=== PATIENT | female | born 1980 | race African-American/Black ===

== ENCOUNTER 2017-01-04 05:04 | Emergency (ER) | payer OTHER ==
[2017-01-04] MEDS ORDERED: AMOXICILLIN 250 MG CAPSULE PO STA (05:10)
[2017-01-04] MEDS ORDERED: IBUPROFEN 600 MG TABLET PO STA (05:10)
[2017-01-04] MEDS ORDERED: IBUPROFEN 600 MG TABLET PO ONE (05:12)
[2017-01-04] MEDS ORDERED: AMOXICILLIN 250 MG CAPSULE PO ONE (05:12)
== END 2017-01-04 05:17 | disposition home or self-care (01) ==
DX: H66.92 Otitis media, unspecified, left ear (principal)
CPT/HCPCS: 99283; A9270

== ENCOUNTER 2017-05-06 21:51 | Emergency (ER) | payer OTHER ==
[2017-05-06 23:49] LABS: BILIRUBIN,URINE NEGATIVE (NEGATIVE)
[2017-05-06 23:53] LABS: HCG UR QUAL NEGATIVE; UA CHARGE (STRIP ONLY) YES; UR CULTURE IF IND NOT INDICATED
--- NOTE | 2017-05-07 00:19 | ED Physician Documentation ---
PD HPI FEMALE - Stated complaint Stated Complaint: SIDE PX - Chief complaint Chief Complaint: Abd Pain - History obtained from History obtained from: Patient - History of Present Illness Timing - onset: Yesterday Timing - details: Gradual onset, Still present Associated symptoms: Abdominal pain Similar symptoms before: Work up / diagnostics, Treatment, Follow up Recently seen: Not recently seen - Additional information Additional information: patient is a 36 year old female with a history of mittelschmerz and a kidney stone in the past who is presenting to the emergency department for side pain. patient states that it started yesterday. patient states that she did not know if it was a stone again or if it was her mittelschmerz so she came to the emergency department [place]. Review of Systems Constitutional: denies: Fever, Chills Eyes: reports: Reviewed and negative Ears: reports: Reviewed and negative Nose: denies: Congestion, Epistaxis Throat: reports: Reviewed and negative Cardiac: denies: Chest pain / pressure, Palpitations Respiratory: denies: Dyspnea, Cough, Wheezing GI: reports: Abdominal Pain. denies: Nausea, Vomiting, Constipation, Diarrhea : denies: Dysuria, Frequency, Hesitancy, Unable to Void Skin: denies: Rash, Lesions Musculoskeletal: reports: Back pain Neurologic: denies: Generalized weakness, Focal weakness, Numbness Immunocompromised: denies: Immunocompromised PD PAST MEDICAL HISTORY - Past Surgical History Past Surgical History: No - Present Medications Home Medications: Ambulatory Orders Medication Instructions Recorded Confirmed Pnv95/Ferrous Fumarate/FA 1 tab PO DAILY 02/22/14 05/04/14 [ Tablet] Albuterol [Ventolin Hfa] 2 puffs INH Q4H PRN #1 inhaler 05/04/14 Azithromycin 250 mg PO DAILY #4 tablet 05/04/14 predniSONE [Deltasone] 40 mg PO DAILY 3 Days 05/04/14 Amoxicillin 1,000 mg PO TID #30 capsule 01/04/17 - Allergies Allergies/Adverse Reactions: Allergies Allergy/AdvReac Type Severity Reaction Status Date / Time No Known Drug Allergies Allergy Verified 05/04/14 01:38 - Social History Does the pt smoke?: No Smoking Status: Never smoker Does the pt drink ETOH?: No Does the pt have substance abuse?: No - Immunizations Immunizations are current?: Yes - POLST Patient has POLST: No PD ED PE NORMAL - Vitals Vital signs reviewed: Yes - General General: Alert and oriented X 3, Well developed/nourished - HEENT HEENT: Atraumatic, PERRL, Moist mucous membranes - Neck Neck: Supple, no meningeal sign - Cardiac Cardiac: RRR, No murmur - Respiratory Respiratory: No respiratory distress - Abdomen Abdomen: Soft, Non tender, Non distended - Derm Derm: Normal color, Warm and dry, No rash - Extremities Extremities: No deformity - Neuro Neuro: Alert and oriented X 3, No motor deficit, No sensory deficit, Normal speech PD ED PE EXPANDED - General General: Alert, Other (worried) - Back Back: CVA TTP right Results - Vitals Vitals: Vital Signs - 24 hr 05/06/17 05/07/17 22:04 00:35 Temperature 36.8 C Heart Rate 87 71 Respiratory 18 16 Rate Blood Pressure 142/103 H 132/70 H O2 Saturation 100 100 Oxygen O2 Source Room air - Labs Labs: Laboratory Tests 05/06/17 23:35 Urine Color YELLOW Urine Clarity CLEAR Urine pH 6.0 Ur Specific [place] >=1.030 H Urine Protein NEGATIVE Urine Glucose (UA) NEGATIVE Urine Ketones NEGATIVE Urine Occult Blood NEGATIVE Urine Nitrite NEGATIVE Urine Bilirubin NEGATIVE Urine Urobilinogen 0.2 (NORMAL) Ur Leukocyte Esterase NEGATIVE Ur Microscopic Review NOT INDICATED Urine Culture Comments NOT INDICATED Urine HCG, Qual NEGATIVE PD MEDICAL DECISION MAKING - ED course Complexity details: reviewed old records, reviewed results, re-evaluated patient , considered differential, d/w patient ED course: Patient was seen and examined at bedside. patient's urine was collected and was within normal limits. so the chance of stone was less than 20 percent. Patient was made aware of the findings and stated that she did not want imaging at this time. Patient required no further work up and was stable for discharge with outpatient follow up. Departure - Departure Disposition: 01 Home, Self Care Clinical Impression: Owen Condition: Good Instructions: ED Mid Cycle Pain [place] Follow-Up: primary,care provider [Other] - Within 1 week Comments: Your diagnostics today were within normal limits indicating that your pain is unlikely a kidney stone or infection. You should follow up with your pmd if your symptoms persist or return. You may return to the emergency department at any time if necessary for new, worsening or uncontrollable symptoms. Forms: Activity restrictions Discharge Date/Time: 05/07/17 00:36
[2017-05-07] MEDS ORDERED: oxyCODONE/ACET 5/325 Prepack 4 PO STA (00:21)
[2017-05-07] MEDS ORDERED: oxyCODONE/ACET 5/325 Prepack 4 PO ONE (00:31)
[2017-05-07 00:36] VITALS: BP 132/70
== END 2017-05-07 00:36 | disposition home or self-care (01) ==
LOC: ED 21:51
DX: N94.0 Mittelschmerz (principal); Z87.442 Personal history of urinary calculi
CPT/HCPCS: 81001; 81003; 81025; 87086; 99283

== ENCOUNTER 2018-05-13 22:57 | Emergency (ER) | payer OTHER ==
[2018-05-13 23:21] VITALS: BP 128/94
--- NOTE | 2018-05-13 23:52 | ED Physician Documentation ---
History of Present Illness - Stated complaint Stated Complaint: R ABD PX - Chief complaint Chief Complaint: Abd Pain - History obtained from History obtained from: Patient - Additonal information Additional information: 37-year-old female presents the emergency department with complaints of left flank pain which radiates into her abdomen. The patient's symptoms started several days ago and have progressively worsened. No relieving factors. No triggering factors. The patient denies hematuria or dysuria or fever. 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 - Past Surgical History Past Surgical History: No - Present Medications Home Medications: Ambulatory Orders Medication Instructions Recorded Confirmed No Known Home Medications 05/13/18 05/13/18 - Allergies Allergies/Adverse Reactions: Allergies Allergy/AdvReac Type Severity Reaction Status Date / Time No Known Drug Allergies Allergy Verified 05/13/18 23:21 - Social History Does the pt smoke?: No Smoking Status: Never smoker Does the pt drink ETOH?: No Does the pt have substance abuse?: No - Immunizations Immunizations are current?: Yes - POLST Patient has POLST: No PD ED PE NORMAL - General General: Alert and oriented X 3, No acute distress - HEENT HEENT: Atraumatic, PERRL, EOMI, Ears normal - Neck Neck: Supple, no meningeal sign - Cardiac Cardiac: RRR, Strong equal pulses - Respiratory Respiratory: No respiratory distress - Abdomen Abdomen: Soft, Non tender, Non distended - Back Back: No: No CVA TTP (The patient has right flank tenderness) - Derm Derm: Normal color - Extremities Extremities: No deformity, Normal ROM s pain - Neuro Neuro: Alert and oriented X 3, Normal speech - Psych Psych: Normal affect Results - Vitals Vitals: Vital Signs - 24 hr 05/13/18 23:14 Temperature 36.4 C L Heart Rate 91 Respiratory 22 Rate Blood Pressure 128/94 H O2 Saturation 100 Oxygen O2 Source Room air - Labs Labs: Laboratory Tests 05/13/18 05/13/18 05/14/18 23:54 23:54 00:41 WBC 6.9 RBC 4.75 Hgb 13.1 Hct 39.3 MCV 82.8 MCH 27.5 MCHC 33.3 RDW 15.1 H Plt Count 378 MPV 7.2 L Neut # (Auto) 3.9 Lymph # (Auto) 2.2 [place] # (Auto) 0.4 Eos # (Auto) 0.3 Baso # (Auto) 0.1 Absolute Nucleated RBC 0.00 Nucleated RBC % 0.0 Sodium 136 Potassium 3.7 Chloride 106 Carbon Dioxide 22 Anion Gap 8.0 BUN 11 Creatinine 0.9 Estimated GFR (MDRD) 86 L Glucose 97 Calcium 8.8 Total Bilirubin 0.5 AST 18 ALT 18 Alkaline Phosphatase 48 Total Protein 7.3 Albumin 4.2 Globulin 3.1 Albumin/Globulin Ratio 1.4 Lipase 40 Urine Color Urine Clarity Urine pH Ur Specific [place] >=1.030 H Urine Protein Urine Glucose (UA) Urine Ketones Urine Occult Blood Urine Nitrite Urine Bilirubin Urine Urobilinogen Ur Leukocyte Esterase Urine RBC Urine WBC Ur Squamous Epith Cells Urine Bacteria Ur Microscopic Review Urine Culture Comments Urine HCG, Qual NEGATIVE 05/14/18 00:41 WBC RBC Hgb Hct MCV MCH MCHC RDW Plt Count MPV Neut # (Auto) Lymph # (Auto) [place] # (Auto) Eos # (Auto) Baso # (Auto) Absolute Nucleated RBC Nucleated RBC % Sodium Potassium Chloride Carbon Dioxide Anion Gap BUN Creatinine Estimated GFR (MDRD) Glucose Calcium Total Bilirubin AST ALT Alkaline Phosphatase Total Protein Albumin Globulin Albumin/Globulin Ratio Lipase Urine Color YELLOW Urine Clarity CLEAR Urine pH 6.0 Ur Specific [place] >=1.030 H Urine Protein NEGATIVE Urine Glucose (UA) NEGATIVE Urine Ketones NEGATIVE Urine Occult Blood SMALL Urine Nitrite NEGATIVE Urine Bilirubin NEGATIVE Urine Urobilinogen 0.2 (NORMAL) Ur Leukocyte Esterase NEGATIVE Urine RBC 0-5 Urine WBC 0-3 Ur Squamous Epith Cells MOD Squamous H Urine Bacteria Rare Ur Microscopic Review INDICATED Urine Culture Comments NOT INDICATED Urine HCG, Qual PD MEDICAL DECISION MAKING - ED course ED course: On reevaluation the patient resting comfortably and appears to be much improved. The patient's symptoms may be secondary to the gallstone seen on CT scan. Clinically and based on the patient's lab work there is no evidence of acute cholecystitis. Presently, the patient appears appropriate for discharge home and further workup as an outpatient. The patient was discharged during downtime and was given downtime procedure discharge instructions. I advised that she should follow-up with the on-call surgeon and the patient was given his name and number. I discussed warning signs and recommended returning to the emergency department immediately for worsening or any concerns. - Sepsis Event Vital Signs: Vital Signs - 24 hr 05/13/18 23:14 Temperature 36.4 C L Heart Rate 91 Respiratory 22 Rate Blood Pressure 128/94 H O2 Saturation 100 Oxygen O2 Source Room air Departure - Departure Disposition: 01 Home, Self Care Clinical Impression: Flank pain Gallstone Qualifiers: Cholecystitis presence: without cholecystitis Biliary obstruction: without biliary obstruction Qualified Code(s): K80.20 - Calculus of gallbladder without cholecystitis without obstruction Condition: Good Discharge Date/Time: 05/14/18 03:33
[2018-05-14 00:01] LABS: BASOPHILS # (AUTO) 0.1 10^3/uL (0.0-0.1); BASOPHILS % (AUTO) 1.1 %; EOSINOPHILS # (AUTO) 0.3 10^3/uL (0.0-0.7); EOSINOPHILS % (AUTO) 4.2 %; HGB - HEMOGLOBIN 13.1 g/dL (12.0-16.0); LYMPHOCYTES # (AUTO) 2.2 10^3/uL (1.5-3.5); LYMPHOCYTES % (AUTO) 32.4 %; MEAN CORPUSCULAR HEMOGLOBIN 27.5 pg (27.0-31.0); MEAN CORPUSCULAR HGB CONC 33.3 g/dL (32.0-36.0); MEAN CORPUSCULAR VOLUME 82.8 fL (81.0-99.0); MEAN PLATELET VOLUME 7.2 fL (7.9-10.8); MONOCYTES # (AUTO) 0.4 10^3/uL (0.0-1.0); MONOCYTES % (AUTO) 5.8 %; NEUTROPHILS # (AUTO) 3.9 10^3/uL (1.5-6.6); NEUTROPHILS % (AUTO) 56.5 %; PLT - PLATELET COUNT 378 10^3/uL (130-450); RED BLOOD COUNT 4.75 10^6/uL (4.20-5.40); RED CELL DISTRIBUTION WIDTH 15.1 % (12.0-15.0); WHITE BLOOD COUNT 6.9 x10^3/uL (4.8-10.8)
[2018-05-14 00:13] LABS: ALBUMIN 4.2 g/dL (3.2-5.5); ALBUMIN/GLOBULIN RATIO 1.4 (1.0-2.2); BILIRUBIN,TOTAL 0.5 mg/dL (0.2-1.0); CALCIUM 8.8 mg/dL (8.5-10.3); CREATININE 0.9 mg/dL (0.4-1.0); TOTAL PROTEIN 7.3 g/dL (6.7-8.2)
[2018-05-14 00:53] LABS: CLARITY,URINE CLEAR (CLEAR); LEUKOCYTE ESTERASE, URINE NEGATIVE (NEGATIVE); NITRITE,URINE NEGATIVE (NEGATIVE); OCCULT BLOOD,URINE SMALL (NEGATIVE); PROTEIN,URINE NEGATIVE (NEGATIVE); UROBILINOGEN,URINE 0.2 (NORMAL) E.U./dL (NORMAL)
[2018-05-14 00:54] LABS: BILIRUBIN,URINE NEGATIVE (NEGATIVE); GLUCOSE, URINE (UA) NEGATIVE (NEGATIVE); HCG UR QUAL NEGATIVE; KETONES,URINE (UA) NEGATIVE (NEGATIVE)
[2018-05-14 00:56] LABS: BACTERIA,URINE Rare /HPF (None Seen); RBC,URINE 0-5 /HPF (0-5); SQUAMOUS EPITHELIAL CELL,UR MOD Squamous (<= Few)
[2018-05-14] MEDS ORDERED: KETOROLAC 15 MG/ML VIAL ONE (01:39)
[2018-05-14] MEDS ORDERED: fentaNYL 100 MCG/2 ML VIAL ONE (01:40)
[2018-05-14] MEDS ORDERED: ONDANSETRON 4 MG/2 ML VIAL ONE (01:40)
--- NOTE | 2018-05-14 03:15 | CT Report ---
Reason: flank pain Procedure Date: 05/14/2018 Accession Number: [id number] / [id number] Procedure: CT - Abdomen/Pelvis W/O CPT Code: FULL RESULT: EXAM: CT ABDOMEN AND PELVIS (CT KUB) EXAM DATE: 05/14/2018 01:06 AM. CLINICAL HISTORY: Flank pain. COMPARISONS: None. TECHNIQUE: Routine axial helical CT imaging was performed through the abdomen and pelvis without IV contrast. Reconstructions: Coronal and sagittal. In accordance with CT protocol optimization, one or more of the following dose reduction techniques were utilized for this exam: automated exposure control, adjustment of mA and/or KV based on patient size, or use of iterative reconstructive technique. FINDINGS: Lung Bases: Unremarkable. Right Kidney/Ureter: No stones, hydronephrosis, or hydroureter. No perinephric fat stranding. Left Kidney/Ureter: No stones, hydronephrosis, or hydroureter. No perinephric fat stranding. Other Solid Organs: Noncontrast images of the solid organs are grossly unremarkable. Gallbladder/Bile Ducts: Distended gallbladder. There are some small calcified stones layering in the gallbladder. Minimal gallbladder inflammation could be present. Peritoneal Cavity: No bowel obstruction seen. There are some colonic diverticula. No definite diverticulitis is identified. No free air or free fluid. No lymphadenopathy. There is a small umbilical hernia containing fat. Appendix appears normal. Pelvic Organs: No bladder stones or wall thickening. Noncontrast images of the visualized pelvic organs are unremarkable. Vasculature: Unremarkable. Other: None. IMPRESSION: 1. No urolithiasis seen. 2. Distended gallbladder with some small layering stones. Early cholecystitis not excluded. 3. Colonic diverticula without definite evidence of diverticulitis. 4. Appendix appears normal. RADIA
== END 2018-05-14 03:33 | disposition home or self-care (01) ==
LOC: ED 22:57
DX: K80.20 Calculus of gallbladder without cholecystitis without obstruction (principal)
CPT/HCPCS: 36415; 74176; 80053; 81001; 81003; 81025; 83690; 85025; 87086; 99282; 99283

== ENCOUNTER 2020-06-28 16:20 | Emergency (ER) | payer OTHER ==
--- NOTE | 2020-06-28 16:47 | ED Physician Documentation ---
PD HPI ABD PAIN - Stated complaint Stated Complaint: R SIDE PX - Chief complaint Chief Complaint: Abd Pain - History obtained from History obtained from: Patient - History of Present Illness Timing - onset: Chronic (worsening over past couple days) Timing - duration: Minutes (15 minutes after eating) Timing - details: Waxing and waning Severity Comments: moderate severity Quality: Cramping Location: RUQ Radiation: Right flank Worsened by: Eating Associated symptoms: Nausea Similar symptoms before: Other (similar symptoms in past , over past several years with history of one small gallstone.) Recently seen: Not recently seen Review of Systems Ten Systems: 10 systems reviewed and negative Constitutional: denies: Fever, Chills Cardiac: denies: Chest pain / pressure GI: reports: Abdominal Pain, Nausea : denies: Dysuria, Frequency, Hesitancy, Vaginal bleeding Musculoskeletal: reports: Back pain PD PAST MEDICAL HISTORY - 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 - Past Surgical History Past Surgical History: No - Present Medications Home Medications: Ambulatory Orders Medication Instructions Recorded Confirmed Amox/Clav 875/125 [Augmentin] 1 each PO Q12H #20 tablet 06/28/20 Oxycodone HCl/Acetaminophen 1 - 2 each PO Q6H PRN #14 tablet 06/28/20 [Percocet 5-325 mg Tablet] - Allergies Allergies/Adverse Reactions: Allergies Allergy/AdvReac Type Severity Reaction Status Date / Time No Known Drug Allergies Allergy Verified 06/28/20 16:27 - Social History Does the pt smoke?: No Smoking Status: Never smoker Does the pt drink ETOH?: No Does the pt have substance abuse?: No - Immunizations Immunizations are current?: Yes - POLST Patient has POLST: No PD ED PE NORMAL - Vitals Vital signs reviewed: Yes - General General: Alert and oriented X 3, No acute distress - HEENT HEENT: Atraumatic - Neck Neck: Supple, no meningeal sign - Cardiac Cardiac: RRR - Respiratory Respiratory: No respiratory distress - Abdomen Abdomen: Other (+oneal sign. ttp in RUQ. otherwise ntnd) - Back Back: No CVA TTP - Derm Derm: Normal color - Extremities Extremities: No edema - Neuro Neuro: Alert and oriented X 3 - Psych Psych: Normal mood, Normal affect Results - Vitals Vitals: Vital Signs - 24 hr 06/28/20 06/28/20 16:22 18:35 Temperature 36.6 C Heart Rate 82 80 Respiratory 20 18 Rate Blood Pressure 146/107 H 137/100 H O2 Saturation 99 100 Oxygen O2 Source Room air - Labs Labs: Laboratory Tests 06/28/20 06/28/20 06/28/20 17:04 17:04 18:10 WBC 9.4 RBC 4.82 Hgb 13.9 Hct 41.8 MCV 86.7 MCH 28.8 MCHC 33.3 RDW 13.0 Plt Count 344 MPV 8.8 Neut # (Auto) 6.9 H Lymph # (Auto) 1.8 [place] # (Auto) 0.5 Eos # (Auto) 0.2 Baso # (Auto) 0.0 Absolute Nucleated RBC 0.00 Nucleated RBC % 0.0 Sodium 138 Potassium 3.7 Chloride 105 Carbon Dioxide 24 Anion Gap 9.0 BUN 9 Creatinine 0.8 Estimated GFR (MDRD) 98 Glucose 118 H Calcium 9.1 Total Bilirubin 0.5 AST 14 ALT 16 Alkaline Phosphatase 52 Total Protein 7.0 Albumin 3.9 Globulin 3.1 Albumin/Globulin Ratio 1.3 Lipase 34 Urine Color YELLOW Urine Clarity CLEAR Urine pH 6.5 Ur Specific [place] 1.015 Urine Protein NEGATIVE Urine Glucose (UA) NEGATIVE Urine Ketones NEGATIVE Urine Occult Blood TRACE-LYSE Urine Nitrite NEGATIVE Urine Bilirubin NEGATIVE Urine Urobilinogen 0.2 (NORMAL) Ur Leukocyte Esterase NEGATIVE Ur Microscopic Review NOT INDICATED Urine Culture Comments NOT INDICATED Urine HCG, Qual NEGATIVE - Rads (name of study) RUQ sono Radiology: EMP read contemporaneously (Thick-walled gallbladder with multiple stones, no pericholecystic fluid.) PD MEDICAL DECISION MAKING - ED course ED course: 39-year-old woman with pain that sounds very much like it is from her gallbladder and is found to have probably mild cholecystitis on ultrasound with normal labs. Case discussed by phone with Dr. Sharpe, the on-call surgeon who recommends close follow-up in the office tomorrow and oral antibiotics. Departure - Departure Disposition: 01 Home, Self Care Clinical Impression: Cholecystitis Condition: Good Record reviewed to determine appropriate education?: Yes Instructions: ED Gallbladder Infec Conf Follow-Up: Sonja Sharpe MD [Provider Admit Priv/Credential] - Prescriptions: Amox/Clav 875/125 [Augmentin] 1 each PO Q12H #20 tablet Oxycodone HCl/Acetaminophen [Percocet 5-325 mg Tablet] 1 - 2 each PO Q6H PRN #14 tablet PRN Reason: pain Comments: The on-call surgeon, Dr. Sharpe was contacted by phone today and would like to see you in the office tomorrow. You also need to [place] to get in with a surgeon as you will likely need your gallbladder out in short order. Return if worsening or if the pain is uncontrolled. We did do a preoperative coronavirus test today. Results should be done within 24 to 48 hours.
[2020-06-28 17:10] LABS: BASOPHILS % (AUTO) 0.4 %; EOSINOPHILS # (AUTO) 0.2 10^3/uL (0.0-0.7); EOSINOPHILS % (AUTO) 1.8 %; HGB - HEMOGLOBIN 13.9 g/dL (12.0-16.0); LYMPHOCYTES # (AUTO) 1.8 10^3/uL (1.5-3.5); LYMPHOCYTES % (AUTO) 18.8 %; MEAN CORPUSCULAR HEMOGLOBIN 28.8 pg (27.0-31.0); MEAN CORPUSCULAR HGB CONC 33.3 g/dL (32.0-36.0); MEAN CORPUSCULAR VOLUME 86.7 fL (81.0-99.0); MEAN PLATELET VOLUME 8.8 fL (7.9-10.8); MONOCYTES # (AUTO) 0.5 10^3/uL (0.0-1.0); MONOCYTES % (AUTO) 5.4 %; NEUTROPHILS # (AUTO) 6.9 10^3/uL (1.5-6.6); NEUTROPHILS % (AUTO) 73.3 %; PLT - PLATELET COUNT 344 10^3/uL (130-450); RED BLOOD COUNT 4.82 10^6/uL (4.20-5.40); WHITE BLOOD COUNT 9.4 x10^3/uL (4.8-10.8)
[2020-06-28 17:23] LABS: ALBUMIN 3.9 g/dL (3.2-5.5); ALBUMIN/GLOBULIN RATIO 1.3 (1.0-2.2); BILIRUBIN,TOTAL 0.5 mg/dL (0.2-1.0); CALCIUM 9.1 mg/dL (8.5-10.3); CREATININE 0.8 mg/dL (0.4-1.0)
[2020-06-28] MEDS ORDERED: oxyCODONE 5 MG TABLET PO STA (18:07)
[2020-06-28] MEDS ORDERED: AMOX/CLAV 875 MG/125 MG TABLET PO STA (18:07)
--- NOTE | 2020-06-28 18:29 | Ultrasound Report ---
PROCEDURE: Abdomen Limited INDICATIONS: RUQ pain TECHNIQUE: Real-time focused scanning was performed of the abdomen, with image documentation. COMPARISON: Correlation is made with prior abdomen and pelvis CT, 05/14/2018. FINDINGS: The liver demonstrates normal size and echogenicity. No liver lesions are detected. Shadowing gallstones can be seen, which measure up to 1.3 cm and are not mobile. The lateral wall is thickened at 5 mm. No specific pericholecystic fluid is seen. The sonographic Carter's sign is positi ve. No biliary ductal dilatation is seen. The common bile duct measures 3 mm. The visualized pancreas is unremarkable. The visualized right kidney is likewise within normal limits . IMPRESSION: High suspicion for acute cholecystitis, with nonmobile gallstones, a thickened gallbladder wall, and a positive sonographic Carter's sign. Note: Concordant preliminary findings given by the turntable worker upon the completion of the examination to Dr. Ramos at 6:00 PM on 06/28/2020. Reviewed by: Paco Catherine MD on 06/28/2020 5:28 PM COLLEEN Approved by: Paco Catherine MD on 06/28/2020 5:28 PM COLLEEN Station ID: [id number]
[2020-06-28 18:33] LABS: BILIRUBIN,URINE NEGATIVE (NEGATIVE); GLUCOSE, URINE (UA) NEGATIVE (NEGATIVE); KETONES,URINE (UA) NEGATIVE (NEGATIVE); LEUKOCYTE ESTERASE, URINE NEGATIVE (NEGATIVE); NITRITE,URINE NEGATIVE (NEGATIVE); OCCULT BLOOD,URINE TRACE-LYSE (NEGATIVE); PH,URINE 6.5 PH (5.0-7.5); PROTEIN,URINE NEGATIVE (NEGATIVE); UROBILINOGEN,URINE 0.2 (NORMAL) E.U./dL (NORMAL)
[2020-06-28 18:36] VITALS: BP 137/100
[2020-06-28 18:37] LABS: CLARITY,URINE CLEAR (CLEAR); HCG UR QUAL NEGATIVE
== END 2020-06-28 18:47 | disposition home or self-care (01) ==
LOC: ED 16:20
DX: K81.9 Cholecystitis, unspecified (principal)
CPT/HCPCS: 36415; 76705; 80053; 81003; 81025; 83690; 85025; 87635; 99284; 99285; A9270; 81001; 87086

== ENCOUNTER 2020-07-02 11:15 | Day surgery (SDC) | payer OTHER ==
[~2020-07-02 11:15] MED LIST: BUPIVACAINE 0.25% PF 30 ML VIAL SUBQ ONE; LACTATED RINGERS 1,000 ML IV ONE
[2020-07-02 11:38] LABS: HCG UR QUAL NEGATIVE
[2020-07-02] MEDS ORDERED: LACTATED RINGERS 1,000 ML IV ONE ×3 (11:47→14:44)
[2020-07-02] MEDS ORDERED: CEFAZOLIN SODIUM IN 0.9 % NACL 2 GM/100 ML BAG IV ONE (11:55)
--- NOTE | 2020-07-02 11:56 | ANESTHESIA ---
Pre-Anesthesia VS, & Labs - Diagnosis cholecystsitis - Procedure laparoscopic misty Vital Signs: Temp Pulse Resp BP Pulse Ox 36.6 C 78 18 121/82 H 99 07/02/20 11:34 07/02/20 11:34 07/02/20 11:34 07/02/20 11:34 07/02/20 11:34 Height: 5 ft 3 in Weight (kg): 92.99 kg Body Mass Index: 36.3 BMI Classification: Obese - NPO >8 hours - Is Patient ?: No Home Medications and Allergies Home Medications: Ambulatory Orders Acetaminophen [Tylenol] 650 mg PO Q6H PRN 07/02/20 Acetaminophen [Tylenol] 650 mg PO Q6H PRN 07/02/20 Allergies/Adverse Reactions: Allergies Allergy/AdvReac Type Severity Reaction Status Date / Time No Known Drug Allergies Allergy Verified 07/02/20 11:38 Anes History & Medical History - Anesthetic History Anesthesia Complications: reports: No previous complications - Medical History Cardiovascular: reports: None Pulmonary: reports: None Gastrointestinal: reports: Cholelithiasis Urinary: reports: None Smoking Status: Current every day smoker History of Cancer?: No Exam General: Alert, Oriented x3 Dental: WNL Mouth Opening: Greater than 4 Fingerbreadths Mallampati classification: III Thyromental Distance: greater than 6 cm Respiratory: Lungs clear Cardiovascular: Regular rate, Normal S1, Normal S2 Plan Anesthesia Type: General Consent for Procedure(s) Verified and Reviewed: Yes Code Status: Attempt Resuscitation ASA classification: 2-Mild systemic disease Is this case an emergency?: No
[2020-07-02] MEDS ORDERED: BUPIVACAINE 0.25% PF 30 ML VIAL ONE ×2 (12:11→12:55)
[2020-07-02] MEDS ORDERED: ONDANSETRON 4 MG/2 ML VIAL IVP ONE (12:15)
[2020-07-02] MEDS ORDERED: GLYCOPYRROLATE 1 MG/5 ML VIAL IVP ONE (12:15)
[2020-07-02] MEDS ORDERED: NEOSTIGMINE 1 MG/1 ML 10 ML MDV IVP ONE (12:15)
[2020-07-02] MEDS ORDERED: ROCURONIUM 50 MG/5 ML VIAL IVP ONE (12:15)
[2020-07-02] MEDS ORDERED: PROPOFOL 200 MG/20 ML VIAL IVP ONE (12:15)
[2020-07-02] MEDS ORDERED: fentaNYL 250 MCG/5 ML VIAL IVP ONE (12:15)
[2020-07-02] MEDS ORDERED: KETOROLAC 30 MG/ML VIAL IVP ONE (12:15)
[2020-07-02] MEDS ORDERED: MIDAZOLAM 2 MG/2 ML VIAL IVP ONE (12:15)
[2020-07-02] MEDS ORDERED: LIDOCAINE-MPF 2% 5 ML VIAL IM ONE (12:15)
[2020-07-02] MEDS ORDERED: DEXAMETHASONE 4 MG/ML VIAL IVP ONE (12:15)
[2020-07-02] MEDS ORDERED: ACETAMINOPHEN 1,000 MG/100 ML 100 ML IV PRN (13:02)
[2020-07-02] MEDS ORDERED: HYDROmorphone 0.5 MG/0.5 ML SYRINGE IVP PRN (13:02)
[2020-07-02] MEDS ORDERED: ATROPINE ABBOJECT 1 MG/10 ML SYRINGE IVP PRN (13:02)
[2020-07-02] MEDS ORDERED: NALOXONE 0.4 MG/ML VIAL IVP PRN (13:02)
[2020-07-02] MEDS ORDERED: fentaNYL 100 MCG/2 ML VIAL IVP PRN (13:02)
[2020-07-02] MEDS ORDERED: ONDANSETRON 4 MG/2 ML VIAL IVP PRN (13:02)
[2020-07-02] MEDS ORDERED: MORPHINE 2 MG/ML CARPUJECT IVP PRN (13:02)
[2020-07-02] MEDS ORDERED: BUPIVACAINE 0.25% PF 30 ML VIAL SUBQ ONE (13:15)
[2020-07-02] MEDS ORDERED: SUGAMMADEX 200 MG/2 ML VIAL IVP ONE (13:38)
--- NOTE | 2020-07-02 13:38 | OPERATIVE REPORT ---
Operative Report - General Procedure Date: 07/02/20 Planned Procedure: lap misty Pre-Op Diagnosis: chronic cholecystitis Procedure Performed: lap misty Post Op Diagnosis: chronic cholecystitis - Procedure Note Primary Surgeon: claudia wilde Anesthesia Technique: General ET tube, Local Pathology: gb Estimated Blood Loss (mL): 10 Drain/Tube Type: Other (none) Complications: none
--- NOTE | 2020-07-02 13:53 | ANESTHESIA POST OP EVALUATION ---
Anesthesia Post Eval - Post Anesthesia Eval Vitals: Last Vital Signs Temp 36.7 C 07/02/20 13:34 Pulse 75 07/02/20 13:40 Resp 15 07/02/20 13:40 BP 138/88 H 07/02/20 13:40 Pulse Ox 100 07/02/20 13:40 CV Function Including HR & BP: positive: Stable Pain Control: positive: Satisfactory Nausea & Vomiting: positive: Negative Mental Status: positive: Baseline Respiratory Status: Airway Patent Hydration Status: Satisfactory Anesthesia Complications: positive: None
[2020-07-02] MEDS ORDERED: LACTATED RINGERS 1,000 ML IV SCH (14:00)
[2020-07-02] MEDS ORDERED: ACETAMINOPHEN 1,000 MG/100 ML 100 ML IV ONE (14:11)
[2020-07-02] MEDS: HYDROcod/ACETAM 5/325 MG TABLET PO PRN ×2 (14:51→21:39)
[2020-07-02] MEDS ORDERED: HYDROcod/ACETAM 5/325 MG TABLET ONE (14:55)
[2020-07-02] MEDS ORDERED: ONDANSETRON 4 MG/2 ML VIAL ONE (15:59)
--- NOTE | 2020-07-02 16:17 | OPERATIVE REPORT ---
DATE OF SERVICE: 07/02/2020 Physician: Lexa Olivia MD PREOPERATIVE DIAGNOSIS: Acute on chronic cholecystitis. POSTOPERATIVE DIAGNOSIS: Chronic cholecystitis. PROCEDURE PERFORMED: Laparoscopic cholecystectomy. SURGEON: Lexa Olivia MD DIALS INSPECTOR: None. ANESTHESIA 1. General endotracheal anesthesia. 2. Local anesthesia with Marcaine. COMPLICATIONS: None. ESTIMATED BLOOD LOSS: None. SPECIMEN: Gallbladder. DRAINS: None. FINDINGS: Chronic cholecystitis. She had significant scarring of the cystic duct to the cystic praneeth ry as well as stones in the infundibulum. She had a healthy-appearing liver. The common hepatic ivone t was easily evident without dissection and was normal. INDICATIONS FOR PROCEDURE: The patient is a 39-year-old who has had significant biliary colic on and off for years. It has progressed markedly recently. She has not had signs or symptoms of choledoch olithiasis. She presents for laparoscopic cholecystectomy. Risks discussed, and alternatives discus sed. All questions answered and consent obtained. DESCRIPTION OF PROCEDURE: The patient was properly identified and brought to the operating room and placed in supine position. General endotracheal anesthesia was induced. Sequential compression eduardo jacqueline were placed. She was prepped and draped in a sterile fashion, given preoperative antibiotics. L ocal anesthetic was given to incision areas. She has had 4 children, she has a small diastasis and m ild weakness at the umbilicus. An incision was made approximately 2 cm cephalad and 4 cm right later al of the umbilicus. Dissection proceeded down to the anterior rectus sheath. This was incised part ially, lifted upwards and abdomen entered with the Veress needle. CO2 was insufflated to a pressure of 15. An 11 mm trocar with a 30-degree scope was placed under vision. There was no evidence of inj ury from Veress needle or trocar placement. Under direct vision, two 5 mm trocars were placed in the right upper quadrant and a 10 mm trocar was placed in the epigastrium. Body of the gallbladder was retracted anterior. The infundibulum of the gallbladder was retracted right lateral and caudad. Per itoneal type tissue was carefully mobilized from the bottom of the gallbladder. The node of [place] was removed, exposing the cystic artery. Her gallbladder was slightly funnel shaped. The cystic duct a nd cystic artery were scarred densely to one another. The hepatic duct was easily evident without di ssection. The cystic duct and cystic artery were carefully from one another. The cystic d uct was then clipped times three where it was narrow and clipped an additional one time towards the g allbladder and sharply divided. Cystic artery was clipped and divided. The gallbladder was mobilize d off from the bed of the liver without spillage of bile or stone material. The gallbladder was plac ed in an EndoCatch bag and brought out through the epigastrium. Hemostasis was assured. Clips were secure. There were no apparent complications. Trocars were removed under direct vision and CO2 evac uated. Fascia and epigastrium was closed with an interrupted 0 Vicryl. Fascia at the periumbilical area was closed with a [id number] 0 Vicryl. Subcutaneous tissue was irrigated and skin closed w ith buried interrupted 4-0 Monocryl. Steri-Strips and dressings were applied. She tolerated the pro cedure very well. TD: 07/02/2020 13:59
[2020-07-02] MEDS ORDERED: ONDANSETRON ODT 4 MG TABLET TL PRN (18:35)
[2020-07-02] MEDS: KETOROLAC 15 MG/ML VIAL IVP PRN (20:08)
[2020-07-03] MEDS: KETOROLAC 15 MG/ML VIAL IVP PRN ×2 (01:59→10:02)
[2020-07-03] MEDS: HYDROcod/ACETAM 5/325 MG TABLET PO PRN (06:30)
[2020-07-03 09:00] VITALS: BP 120/77
--- NOTE | 2020-07-03 10:34 | DISCHARGE SUMMARY ---
"Discharge Summary Admit Date: 07/02/20 Discharge Date: 07/03/20 Discharging Provider: claudia wilde Code Status: Attempt Resuscitation Condition at Discharge: Good Discharge Disposition: 01 Home, Self Care - DIAGNOSES Admission Diagnoses: cholecystitis Discharge Diagnoses with Status of Each Condition: chronic cholecystitis. Lap misty. Home in good condition - HPI History of Present Illness: Progressive abdominal pain requiring urgent cholecystectomy 07/02/2020 - CONSULTS | PROCEDURES Procedures: lap misty - ALLERGIES Allergies/Adverse Reactions: Allergies Allergy/AdvReac Type Severity Reaction Status Date / Time No Known Drug Allergies Allergy Verified 07/02/20 11:38 - MEDICATIONS Home Medications: Ambulatory Orders Medication Instructions Recorded Confirmed Amox/Clav 875/125 [Augmentin] 1 each PO Q12H #20 tablet 06/28/20 07/02/20 Oxycodone HCl/Acetaminophen 1 - 2 each PO Q6H PRN #14 tablet 06/28/20 07/02/20 [Percocet 5-325 mg Tablet] Acetaminophen [Tylenol] 650 mg PO Q6H PRN 07/02/20 07/02/20 Hydrocodone/Acetaminophen 1 each PO Q4HR PRN #30 tablet 07/02/20 [Hydrocodone-Acetamin 5-325 mg] Ondansetron Odt [Zofran Odt] 4 mg PO Q6H PRN #15 tablet 07/02/20 - QUALITY (Female Hip Fx Only) Was patient sent home on osteoporosis medication?: No - FOLLOW UP Follow Up: surgery. appointment has been made"
--- NOTE | 2020-07-03 10:36 | Discharge Plan ---
Discharge Plan Problem Reviewed?: Yes Disposition: Home, Self Care Prescriptions: Hydrocodone/Acetaminophen [Hydrocodone-Acetamin 5-325 mg] 1 each PO Q4HR PRN #30 tablet PRN Reason: Pain Ondansetron Odt [Zofran Odt] 4 mg PO Q6H PRN #15 tablet PRN Reason: Nausea / Vomiting Diet: Regular Activity Restrictions: No Restrictions Shower Restrictions: No Driving Restrictions: No No Smoking: If you smoke, Please STOP! Call for help. Follow-up with: Lexa Olivia MD [Provider Admit Priv/Credential] -
== END 2020-07-03 10:30 | disposition home or self-care (01) ==
LOC: SDS 11:15 → MS2 17:20 → SDS 07-03 10:30
PROVIDERS: ATTEND Surgery
PROC: 0FT44ZZ Resection of Gallbladder, Percutaneous Endoscopic Approach (ICD-10-PCS; principal; 2020-07-02 12:00)
DX: K80.10 Calculus of gallbladder with chronic cholecystitis without obstruction (principal); I10 Essential (primary) hypertension; F17.210 Nicotine dependence, cigarettes, uncomplicated; E66.9 Obesity, unspecified; Z68.36 Body mass index [BMI] 36.0-36.9, adult
CPT/HCPCS: 47562; 81025; A9270; J0131; J0690; J3010; J7120; Q0162

== ENCOUNTER 2020-09-10 03:08 | Emergency (ER) | payer OTHER ==
--- NOTE | 2020-09-10 03:29 | ED Physician Documentation ---
PD HPI HEENT - Stated complaint Stated Complaint: EAR PX/THROBING - Chief complaint Chief Complaint: Heent - History obtained from History obtained from: Patient - History of Present Illness Timing - onset: Last night Timing - duration: Hours (several) Timing - details: Gradual onset Pain level max: 6 Pain level now: 6 Location: Right ear Improves: Nothing Worsens: Other (Yanking on the ear) Associated symptoms: Other (Postnasal drip) Review of Systems Ears: reports: Ear pain PD PAST MEDICAL HISTORY - Past Medical History Past Medical History: Yes Cardiovascular: None Respiratory: None GI: Cholelithiasis [employer]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: Other : None - Past Surgical History Past Surgical History: Yes General: Cholecystectomy - Present Medications Home Medications: Ambulatory Orders Medication Instructions Recorded Confirmed Ciproflox/Dexameth Otic Drops 4 drops OT BID 14 Days #1 bottle 09/10/20 [Ciprodex] - Allergies Allergies/Adverse Reactions: Allergies Allergy/AdvReac Type Severity Reaction Status Date / Time No Known Drug Allergies Allergy Verified 09/10/20 03:18 - Social History Does the pt smoke?: Yes Smoking Status: Current every day smoker Does the pt drink ETOH?: No Does the pt have substance abuse?: No - Immunizations Immunizations are current?: Yes - POLST Patient has POLST: No PD ED PE NORMAL - Vitals Vital signs reviewed: Yes - General General: Alert and oriented X 3 - HEENT HEENT: Atraumatic, PERRL, EOMI, Moist mucous membranes, Pharynx benign, Other (B ilateral external auditory canal with inflammatory changes. Right external auditory canal with erythema And moderate swelling) - Neck Neck: Supple, no meningeal sign Results - Vitals Vitals: Vital Signs - 24 hr 09/10/20 03:14 Temperature 36.5 C Heart Rate 72 Respiratory 16 Rate Blood Pressure 135/92 H O2 Saturation 100 Oxygen O2 Source Room air PD MEDICAL DECISION MAKING - ED course ED course: 39-year-old woman seen for mild otitis externa. Eardrops prescribed. Return pr ecautions given. Patient will follow up with her primary doctor Departure - Departure Disposition: 01 Home, Self Care Clinical Impression: External otitis of right ear Condition: Good Instructions: ED Otitis Externa Ch Prescriptions: Ciproflox/Dexameth Otic Drops [Ciprodex] 4 drops OT BID 14 Days #1 bottle Comments: Return to the ED for any new or worsening symptoms. Follow-up with your primary doctor
[2020-09-10 03:36] VITALS: BP 135/91
--- OUTSIDE RECORDS SUMMARY | 2020-09-15 01:25 | EXTERNAL MEDICAL SUMMARY RPT | Continuity of Care Document ---
:1980 Demographics Phone Unavailable Preferred Language Hebrew Marital Status Unknown Mandaen Affiliation Unknown Race Unknown Ethnic Group Unknown Author Organization [facility] Address [address] [place] [address] Phone Care Team Providers Name Role Phone MD Unavailable Unavailable Rafael Unavailable Unavailable OR Unavailable Unavailable Registrar Unavailable Unavailable Problems date description facility 2020-06-28 16:20 CHOLECYSTITIS, UNSPECIFIED [facility] 2020-07-01 00:00:00 Hypertensive disorder [facility] 2020-07-01 00:00:00 Current every day smoker [facility] 2020-07-01 00:00:00 Calculus of gallbladder without [facility] mention of cholecystitis, without mention of obstruction 2020-07-01 00:00:00 Calculus of gallbladder without [facility] cholecystitis without obstruction 2020-07-01 00:00:00 Alcohol intake [facility] 2020-07-01 00[facility]00:[facility]:00 Biliary calculus [facility] 2020-07-01 00:00:00 Unspecified essential [facility] hypertension 2020-07-01 00:00:00 Essential (primary[facility] hypertension Allergies date description facility NO KNOWN ALLERGIES [facility] CITRUS [facility] EX[facility]AT[facility] JUNIPER TAR [facility] LATEX [facility] No Known Drug Allergies [facility] Results Social History date description facility 2020-07-01 00:00:00 Current every day smoker [facility] Social History date description facility 2020-07-01 00:00:00 Current every day smoker [facility] date description facility [phone]
== END 2020-09-10 03:35 | disposition home or self-care (01) ==
LOC: ED 03:08
DX: H60.91 Unspecified otitis externa, right ear (principal); F17.200 Nicotine dependence, unspecified, uncomplicated
CPT/HCPCS: 99282; 99283

== ENCOUNTER 2022-01-26 08:59 | Outpatient (CLI) | payer OTHER ==
--- NOTE | 2022-01-26 10:13 | SLEEP CARE CONSULTATION ---
Information from patient questionnaire entered by Zainab Auguste MA. I have reviewed and concur with the information entered by Zaniab Auguste MA. This document represents the service I personally performed and the decisions made by , Kristal Travis ARNP. History of Present Illness Service Date and Time: 01/26/2022 0859 Reason for Visit: New patient (ONSET 09/03/2016, NO PRIORS, ) Chief Complaint: reports: Unrefreshed sleep, Snoring, Observed pauses in shruti thing Date of Onset: 6 YEARS Usual bedtime: MORNINGS; 7128-3480 Time it takes to fall asleep: FAST; within minutes Snores at night: Yes Observed to quit breathing while asleep: Yes Sleeps alone due to snoring: Yes Number of times waking at night: 1 Reasons for waking at night: reports: Snoring, Bathroom Toss, Turn, or Twitch while sleeping: No Recalls having dreams: No Usually gets out of bed at: 2173-8090, goes back to sleep after 30 mins to 1600 Feels refreshed in the morning: No Morning headache: No Sleepy or fatigued during the day: Yes Ever fallen asleep while driving: Yes (drowsy driving, no accidents) Takes day naps: Yes (unintentional during work time; few minutes) Dreams during day naps: No Prior sleep studies: No Additional HPI information: I had the pleasure of seeing JIMMIE ATFELIX WOODSON today regarding the possibility of her having a sleep disorder. Her current complaints are snoring, unrefreshed sleep and observed pauses in breathing. She states she snores loudly and recently her elbowed her in her sleep and woke her up. She moved to the couch that night. Her children who sleep in a lower level of the house can hear her snore. She states she did not really snore until after her second child was conceived and after she was delivered. She would wake up gasping for air and snoring. She states her mother has told her she hears her "choking" when she is sleeping. 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 She will be down to sleep between 930 and 10 AM but then wake up a couple hours later. She will be up for about 30 minutes or so and go back to bed about 1 PM. She will then try to sleep till about 4 PM. She normally does not feel rested when she gets up. Patient is trying to lose weight and has lost about 18 pounds in the last 3 months. She is doing an intermittent fasting, cutting out soda and drinking a cleansing liquid containing lemon juice and cayenne. 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 Patient is and lives in [place]. Have you smoked in the past 12 months: Yes Cigarettes per day (20/pack): 10 Years of smokin Smoking Pack Years: 10.0 Alcohol use: Yes Alcohol amount and frequency: 1 X 6 MONTHS Caffeine use: Yes Caffeine amount and frequency: 3 X WEEKLY Family History Family history of sleep disordered breathing: Yes Family Hx Sleep Apnea: Father: Sleep apnea - Treated Allergies and Home Medications Known drug allergies: No Drug allergies reviewed: Yes (NKDA) Home medication list reviewed: Yes (no daily medications) Allergy and home medication list: Allergies No Known Drug Allergies Allergy (Verified 09/10/20 03:18) Review of Systems Weight gain over past 5 years: 18-25 lbs Weight loss over past 5 years: 18 lb loss in last 3 months; intermittent fasting, cleansing diet Cardiovascular: reports: high blood pressure, leg or foot swelling Gastrointestinal: reports: heartburn Psychiatric: denies: anxiety, depression Ear/Nose/Throat: reports: nasal congestion (talking sounds like it comes through nose), wisdom teeth removed. denies: tonsillectomy Endocrine: denies: thyroid disease Musculoskeletal: reports: joint swelling (right knee), muscle pain or cramping (upper back) Immunologic: reports: allergies to food or environment (mild seasonal allergies) Physical Exam Vital signs obtained and entered by: Luis AUGUSTE CMA AATX Blood Pressure: 128/75 (RESP 16, PULSE 76, RIGHT,) Heart Rate: 76 O2 Saturation: 100 (PAPER MASK) Height: 5 ft 3 in Weight: 197 lb 8 oz Body Mass Index: 34.9 BMI Classification: Obese Neck circumference: 13.5 (INCHES) Mouth and throat: narrow oropharynx Soft palate: long Hard palate: normal Uvula: long Uvula visualization: 25% Mallampati Class III Tongue: enlarged in size with teeth aelxis on lateral edges Tonsils: small Neck: normal w/o lymphadenopathy or thyromegaly Heart: regular rate and rhythm Lungs: clear bilaterally Impression and Plan 1. Suspected Obstructive Sleep Apnea-Hypopnea Syndrome, as suggested by a history of loud and irregular snoring, observed cessation of breath while asleep, gasping or choking in sleep, unrefreshed sleep, and excessive daytime sleepiness. Narrow oropharynx and obesity are common predisposing factors for o bstructive sleep apnea-hypopnea syndrome. I recommend proceeding to polysomnography to confirm the diagnosis and to assess severity. If the patient has significant sleep disordered breathing, a manual CPAP titration study will also be performed to find the optimal treatment pressure. I informed the patient of what the sleep studies involve and after some discussion, obtained agreement to proceed. The pathophysiology of obstructive sleep apnea-hypopnea syndrome was discussed with the patient and health risks of cardiovascular and cerebrovascular disease if not treated. Risks of drowsy driving discussed in detail and patient advised to avoid long distance driving and to brisket puller at the first sign of drowsiness. Patient agreed to plan. * Schedule polysomnography * Avoid long distance driving or driving when feeling sleepy. * Avoid alcohol, sedative and muscle relaxant around bedtime. * Attempt to lose weight. * Review instructions provided by trained office staff on how to prepare for the sleep study. * Return for follow-up after sleep study completed. Counseling Topics: Weight loss health impact Visit Type: In Office Time Spent with Patient (minutes): 34 Provider Statement: I spent 100% of the Face to Face Visit with the patient with greater than 50% spent counseling the patient and coordination of care.
[2022-01-26 10:14] VITALS: BP 128/75
== END 2022-01-26 09:00 | disposition home or self-care (01) ==
LOC: SC 08:59
PROVIDERS: ATTEND Nurse Practitioner Family
DX: R06.83 Snoring (principal); R06.81 Apnea, not elsewhere classified; G47.8 Other sleep disorders; G47.10 Hypersomnia, unspecified; F17.200 Nicotine dependence, unspecified, uncomplicated; E66.8 Other obesity; Z68.34 Body mass index [BMI] 34.0-34.9, adult
CPT/HCPCS: 99203; 99212

== ENCOUNTER 2022-02-26 19:31 | Outpatient (CLI) | payer OTHER | END 2022-02-26 19:32 | disposition home or self-care (01) | LOC: SC 19:31 | PROVIDERS: ATTEND Nurse Practitioner Family | DX: G47.61 Periodic limb movement disorder (principal); R06.83 Snoring; G47.10 Hypersomnia, unspecified; G47.8 Other sleep disorders; R06.81 Apnea, not elsewhere classified | CPT/HCPCS: 95810 ==

== ENCOUNTER 2022-03-23 14:22 | Outpatient (CLI) | payer OTHER ==
[2022-03-23 15:17] VITALS: BP 122/92
--- NOTE | 2022-03-23 15:17 | SLEEP CARE CONSULTATION ---
Information from patient questionnaire entered by Zainab Tong MA. I have reviewed and concur with the information entered by Zainab Tong MA. This document represents the service I personally performed and the decisions made by , Kristal Travis ARNP. History of Present Illness Service Date and Time: 03/23/2022 1422 Initial [place] Sleepiness Scale score: 19 (01/2022) Current [place] Sleepiness Scale score: 21 (03/23/2022) Additional HPI information: JIMMIE PALMA returns for follow up and results of the recently performed polysomnography. The patient was informed of the following findings: No significant sleep di sordered breathing with an average AHI of 4.6 and vivian oxygen saturation of 88%. Patient had elevated supine AHI of 7.0 and moderate periodic leg movements of sleep. I explained the pathophysiology behind obstructive sleep apnea. Patient does not have sleep apnea and was advised how weight gain could increase the risk of developing sleep apnea in the future. I strongly encouraged the patient to lose weight. Patient does not have significant sleep disordered breathing but has elevated AHI in supine position so advised positional therapy. Methods to achieve positional management therapy were discussed; such as, positioning with pillows, wearing a T-shirt with tennis balls sewn into the back, Rematee shirt, Zzomba belt and Slumberbump belt. Patient has loud snoring. Snoring can be reduced by weight loss. Weight loss is best achieved with diet consult. Patient instructed to contact PCP for referral. Snoring can also be treated with an oral appliance from a dentist. Advised to check insurance coverage. In addition, an ENT evaluation can be do to see if other treatment is indicated. Patient was cautioned about risks of drowsy driving until sleepiness symptoms resolve. Sleep Study - Results Type of Sleep Study: Polysomnography (F/U POLY, 02/26/2022 [facility], [place],) Prior sleep studies: No Polysomnography/Home Sleep Study results: IMPRESSION: The quality of the study is good. The patient had normal sleep efficiency. The sleep architecture was abnormal for sleep fragmentation and reduced amount of time spent in REM and slow wave sleep (N3). Respiratory monitoring showed no significant sleep disordered breathing (AHI = 4.6) or hypoxia (vivian oxygen saturation of 88%). The few respiratory events occurred almost exclusively during supine sleep (supine AHI = 7.0; non-supine = 0.40). Snore was loud in intensity. There was moderate periodic leg movement of sleep contributing to the sleep fragmentation. Cardiac rhythm was normal sinus rhythm without significant arrhythmia. No abnormal behavior (parasomnia) observed during the night. Allergies and Home Medications Known drug allergies: No Drug allergies reviewed: Yes Home medication list reviewed: Yes (no changes) Allergy and home medication list: Allergies No Known Drug Allergies Allergy (Verified 09/10/20 03:18) Review of Systems Review of systems same as previous: Yes (no changes) Physical Exam Vital signs obtained and entered by: Luis TONG CMA AATYLER Blood Pressure: 122/92 (RESP 22, PULSE 116, RIGHT) Cuff size: wrist Heart Rate: 116 O2 Saturation: 98 (PAPER MASK) Height: 5 ft 3 in Weight: 193 lb (CLOTHES) Weight change since last visit: LOSE -DIETING AND GYM Body Mass Index: 34.2 BMI Classification: Obese Impression and Plan 1. Snoring but no significant sleep disordered breathing. Patient advised that often weight loss will reduce snoring as well as apnea risk. An oral appliance can also be used for snoring. This would require a dental consultation. Patient cautioned not to use other online appliances as can cause bite issues. A list of accredited dentists in [facility] and one local dentist who makes oral appliances is available in office. Patient is advised to check if insurance will cover. An ENT consult can also be helpful to determine if any other treatment is an option. 2. Periodic limb movement, moderate, that did not fragment patients sleep. Periodic limb movement of sleep (PLMS) is characterized by episodes of repetitive limb movements that occur during sleep and usually involve the lower limbs. The etiology is unknown. Caffeine can aggravate PLMS and should be avoided. Sleep hygiene methods can also improve sleep as well as lifestyle changes such as regular exercise. Patient was advised that no treatment is needed at this time. If symptoms increase, then further evaluation is indicated. * Attempt to lose weight * Avoid alcohol consumption near bedtime * The patient is cautioned about driving until sleepiness is completely resolved. * Return as needed for follow up. Counseling Topics: Weight loss health impact Visit Type: In Office Time Spent with Patient (minutes): 23 Provider Statement: I spent 100% of the Face to Face Visit with the patient with greater than 50% spent counseling the patient and coordination of care.
== END 2022-03-23 14:23 | disposition home or self-care (01) ==
LOC: SC 14:22
PROVIDERS: ATTEND Nurse Practitioner Family
DX: R06.83 Snoring (principal); G47.61 Periodic limb movement disorder; E66.9 Obesity, unspecified; Z68.34 Body mass index [BMI] 34.0-34.9, adult
CPT/HCPCS: 99212; 99213

== ENCOUNTER 2023-02-28 09:31 | Outpatient (CLI) | payer OTHER ==
--- NOTE | 2023-03-01 09:25 | Mammography Report ---
BILATERAL DIGITAL SCREENING MAMMOGRAM 3D/2D: 02/28/2023 CLINICAL: Baseline exam. Routine screening. No prior exams were available for comparison. Both breasts are heterogeneously dense, which may obscure small masses (category c / 51-75% glandular tissue). No significant masses, calcifications, or other findings are seen in either breast. IMPRESSION: NEGATIVE There is no mammographic evidence of malignancy. A 1 year screening mammogram is recommended. Based on the Tyrer Cuzick model (a risk assessment model) the patients lifetime risk is 13.7% and he r 10 year risk is 1.7%. According to the ACR, ACS, and NCCN guidelines, an annual breast MRI exam evelio ng with mammogram is recommended if the patients lifetime risk is 20% or greater. This exam was interpreted at Station ID: [id number]. NOTE: For mammograms, a report in lay terms will be sent to the patient. Approximately 15% of breast malignancies will not be visualized mammographically. In the management of a palpable breast mass, a negative mammogram must not discourage biopsy of a clinically suspicious lesion. Electronically Signed By: Abhinav duke/jose:02/28/2023 10:31:24 letter sent: No_Letter ACR BI-RADS Category 1: Negative 3341F PARENCHYMAL PATTERN: (D) - The breast(s) demonstrate(s) heterogeneously dense fibroglandular parmonet ingram. BI-RADS CATEGORY: (1) - 1 Mammogram [id number] 1 year screening LATERALITY: (B)
== END 2023-02-28 09:32 | disposition home or self-care (01) ==
LOC: DI.N 09:31
PROVIDERS: ATTEND Family Medicine
DX: Z12.31 Encounter for screening mammogram for malignant neoplasm of breast (principal)